=== PATIENT | female | born 1985 | race Caucasian/White ===

== ENCOUNTER → 2018-06-11 | Emergency (ER) | payer OTHER ==
[~2018-06-11] VITALS: Ht 154.9 cm; Wt 88.5 kg
== END | disposition home or self-care (01) ==
LOC: ER 21:34
DX: N83.292 Other ovarian cyst, left side (principal); M54.5 Low back pain

== ENCOUNTER 2018-06-24 08:30 | Outpatient (CLI) | payer OTHER | END 2018-06-24 08:37 | disposition home or self-care (01) | LOC: TOM 08:30 | DX: N20.0 Calculus of kidney (principal); N39.0 Urinary tract infection, site not specified; N30.10 Interstitial cystitis (chronic) without hematuria ==

== ENCOUNTER 2018-07-06 10:56 | Outpatient (CLI) | payer OTHER | END 2018-07-06 12:49 | disposition home or self-care (01) | LOC: LAB 10:56 | DX: N30.00 Acute cystitis without hematuria (principal) ==

== ENCOUNTER 2018-07-20 09:06 | Outpatient (CLI) | payer OTHER | END 2018-07-20 11:03 | disposition home or self-care (01) | LOC: NUCLEAR 09:06 | DX: M06.4 Inflammatory polyarthropathy (principal) | CPT/HCPCS: 78315; 78306; A9503 ==